=== PATIENT | male | born 1995 | race Caucasian/White ===

== ENCOUNTER 2017-07-05 10:15 | Emergency (ER) | payer OTHER ==
[~2017-07-05] VITALS: Ht 182.9 cm; Wt 113.4 kg
[~2017-07-05 10:15] MED LIST: FLOMAX0.4 MG PO; IBUPROFEN 800800 M1 PO; PERCOCET 5-3251 EACH PO; ZOFRAN ODT4 MG PO
[2017-07-05 10:50] LABS: ABSOLUTE BASOPHILS 0.2 thou/uL (0.0-0.2); ABSOLUTE EOSINOPHILS 0.1 thou/uL (0.0-0.7); ABSOLUTE LYMPHOCYTES 5.4 thou/uL (0.8-5.3); ABSOLUTE NEUTROPHILS 5.6 thou/uL (1.6-8.1); BASOPHILS 1.3 %; EOSINOPHILS 0.8 %; HEMATOCRIT 44.7 % (42.0-52.0); LYMPHOCYTES 44.2 %; MCH 30.9 pg (26.0-34.0); MCHC 33.6 g/dL (28.0-37.0); MCV 92.1 fL (80.0-100.0); MONOCYTES 8.1 %; MPV 8.8 fl. (7.2-11.1); NUCLEATED RBCS 0 /100WBC; PLATELET COUNT* 330 thou/uL (150-400); POLYS 45.6 %; RBC 4.86 mil/uL (4.50-6.00); RDW-CV 14.4 % (10.5-14.5); WBC 12.3 thou/uL (4.0-11.0)
[2017-07-05] MEDS ORDERED: BACTRIM DS TAB1 EACH PO (12:35)
[2017-07-05] MEDS ORDERED: HYDROCODONE-AP1 EAC6 PO (12:35)
[2017-07-05 12:55] VITALS: BP 111/57
== END 2017-07-05 12:57 | disposition home or self-care (01) ==
LOC: M.ERS 10:15
PROVIDERS: Personal Emergency Response Attendant
DX: S61.412A Laceration without foreign body of left hand, initial encounter (principal); Z87.442 Personal history of urinary calculi; X58.XXXA Exposure to other specified factors, initial encounter; Y93.89 Activity, other specified; Y92.89 Other specified places as the place of occurrence of the external cause; Y99.8 Other external cause status

== ENCOUNTER 2018-06-21 09:07 | Emergency (ER) | payer OTHER ==
[~2018-06-21] VITALS: Ht 182.9 cm; Wt 122.5 kg
[~2018-06-21 09:07] MED LIST changes: +BACTRIM DS TAB1 EACH PO; +HYDROCODONE-AP1 EAC6 PO
[2018-06-21 09:27] VITALS: BP 145/88
--- NOTE | 2018-06-21 14:41 | EKG ---
[place] [address] ELECTROCARDIOGRAM REPORT Name: SOFIA NEIL Room: [facility]#: [id number] Admission: 06/21/18 Attend Phys: Discharge: 06/21/18 Date of : [birth year] Report #: [id number] THIS REPORT FOR: //name// [facility] ED Test Date: 2018-06-21 Test Time: 09:10:15 Pat Name: SOFIA NEIL Department: Room: Gender: M [employer]: : [id number] Requested By: Lisbeth Tate Order Number: [id number] MD: John Brooks Measurements Intervals [place] Rate: 65 P: 2 ND: 146 QRS: 17 QRSD: 104 T: 20 QT: 394 QTc: 410 Interpretive Statements Sinus rhythm Baseline wander in lead(s) I No previous ECG available for comparison Electronically Signed On 06-21-2018 14:41:11 CDT by John Brooks [email or web address] <ELECTRONICALLY SIGNED> By: John Brooks MD, [facility] 06/21/18 1441 0910 9 John Brooks MD, FACC /EPI
== END 2018-06-21 09:29 | disposition left against medical advice (07) ==
LOC: M.ERS 09:07
DX: R00.2 Palpitations (principal); R42 Dizziness and giddiness